=== PATIENT | female | born 1995 | race Two or more races ===

== ENCOUNTER 2025-02-22 22:47 | Emergency (ER) | payer OTHER ==
[~2025-02-22] VITALS: Ht 162.6 cm; Wt 77.9 kg
[2025-02-23] MEDS ORDERED: AMOX875T4 PO (01:11)
[2025-02-23] MEDS ORDERED: ACET500T58 PO (01:11)
--- NOTE | 2025-02-23 01:12 | ED.PDOC ---
Musculoskeletal HPI Comments 29-year-old female presents to ER with complaints of dog bite to right hand x1 hour. Patient states that her pitbull dog bit her on her right hand 1 hour prior to arrival to ER and sustained puncture wound to right hand at that time. She reports 9/10 pain to right hand without radiation. Denies use of medications for current symptoms. States she is unsure if her dog is up-to-date on vaccines and states she is unsure when her last tetanus shot was. Denies numbness/tingling, right wrist pain or any further symptoms/complaints Chief Complaint: Animal Bite Time Seen by MD: 22:56 Primary Care Provider: UNKNOWN Reviewed Notes: Nurses Notes, Medications, Allergies Allergies: Coded Allergies: NO KNOWN ALLERGIES (Unverified , 02/22/25) Home Meds Active Scripts Amoxicillin & Pot Clavulanate (Amoxicillin/Potassium Cla) 875 Mg Tab, 1 TAB PO BID for 7 Days, #14 TAB 0 Refills Prov:NEVA MARIA 02/23/25 Acetaminophen (Acetaminophen) 500 Mg Tab, 500 MG PO Q4HPRN, #30 TAB 0 Refills Prov:NEVA MARIA 02/23/25 Information Source: Patient Mode of Arrival: Ambulatory Last Tetanus: Unknown Past Medical History PAST MEDICAL HISTORY: Denies Surgical History: Denies all surgeries Family History Family History: Unknown Social History Smoker: Non-Smoker Alcohol: Denies ETOH Use Drugs: Denies Drug Use Lives In: Home Constitutional: denies: chills, diaphoresis, fatigue, fever, malaise, sweats, weakness, others EENTM: denies: blurred vision, double vision, ear bleeding, ear discharge, ear drainage, ear pain, ear ringing, eye pain, eye redness, hearing loss, mouth pain, mouth swelling, nasal discharge, nose bleeding, nose congestion, nose pain, photophobia, tearing, throat pain, throat swelling, voice changes, others Respiratory: denies: cough, hemoptysis, orthopnea, SOB at rest, shortness of breath, SOB with excertion, stridor, wheezing, others Cardiovascular: denies: chest pain, dizzy spells, diaphoresis, Dyspnea on exertion, edema, irregular heart beat, left arm pain, lightheadedness, palpitations, PND, syncope, others Gastrointestinal: denies: abdomen distended, abdominal pain, blood streaked bowels, constipated, diarrhea, dysphagia, difficulty swallowing, hematemesis, melena, nausea, poor appetite, poor fluid intake, rectal bleeding, rectal pain, vomiting, others Genitourinary: denies: abnormal vagina bleeding, burning, dyspareunia, dysuria, flank pain, frequency, hematuria, incontinence, pain, , vagina discharge, urgency, others Neurological: denies: dizziness, fainting, headache, left sided numbness, left sided weakness, numbness, paresthesia, pre-existing deficit, right sided numbness, right sided weakness, seizure, speech problems, tingling, tremors, weakness, others Musculoskeletal: denies: back pain, gout, joint pain, joint swelling, muscle pain, muscle stiffness, neck pain, others Integumetry: reports: others (As stated in HPI) Allergic/Immunocompromised: denies: Difficulty Healing, Frequent Infections, Hives, Itching, others Hematologic/Lymphatic: denies: anemia, blood clots, easy bleeding, easy bruising, swollen glands, others Endocrine: denies: excessive hunger, excessive sweating, excessive thirst, excessive urination, flushing, intolerance to cold, intolerance to heat, unexplained weight gain, unexplained weight loss, others Psychiatric: denies: anxiety, bipolar disorder, depression, hopeless, panic disorder, schizophrenia, sleepless, suicidal, others Physical Exam General Appearance: No Apparent Distress HEENT: PERRL/EOMI Neck: Full Range of Motion, Non-Tender, Normal, Normal Inspection Respiratory: Chest Non-Tender, Lungs Clear, No Accessory Muscle Use, No Respiratory Distress, Normal Breath Sounds Cardiovascular: No Murmur, No Gallop, Regular Rate/Rhythm Breast Exam: Deferred Gastrointestinal: NOT DONE Genitalia: Deferred Pelvic: Deferred Rectal: Deferred Extremities: Normal capillary refill, Normal range of motion Neurologic: Alert, No Motor Deficits, Normal Affect, Normal Mood, No Sensory Deficits Cerebellar Function: Normal Reflexes: Normal Skin: Dry, Warm Peripheral Pulses: 2+ Radial (R), 2+ Radial (L), 2+ Brachial (R), 2+ Brachial (L) Lymphatic: No Adenopathy Was a procedure done? Was a procedure done?: No Sedation Sedation?: No Images 1 - 1 cm puncture wound noted. Slight TTP/swelling/erythema localized to wound edges. No foreign body/further skin changes noted. Patient able to fully move all fingers right hand. Pulses intact Differential Diagnosis EXT Differential Diagnosis: Fracture, Dislocation, Laceration, Neurovascular injury X-Ray, Labs, Meds, VS Vital Signs Date Time Temp Pulse Resp B/P (MAP) Pulse Ox O2 Delivery O2 Flow Rate FiO2 02/23/25 01:21 98.5 84 16 99/53 (68) 98 98.5 02/23/25 01:20 Room Air* 0 21 02/22/25 23:00 98.6 84 16 99/53 (68) 98 98.6 Current Medications Medications (Trade) Dose Ordered Sig/Dashawn Route Start Time Stop Time Status Last Admin Diphtheria/ Tetanus/Acell Pertussis (Boostrix T-Dap) 0.5 ml ONCE ONCE IM 02/23/25 01:15 02/23/25 01:16 DC 02/23/25 01:19 Ceftriaxone Sodium (Rocephin) 1,000 mg ONCE ONCE IM 02/23/25 01:15 02/23/25 01:16 DC 02/23/25 01:18 PATIENT: GILLES ISSA ACCT: [id number] UNIT: [id number] : 1995 LOC: ER ROOM / BED: / AGE / SEX: 29 / F ADM STATUS: REG ER SERVICE ORDERING PHYSICIAN: NEVA MARIA PROCEDURE(s): RHAN - R HAND 3 VIEW XRAY REASON: right hand pain/dog bite ORDER NUMBER(s): [id number], ACCESSION NUMBER(s): [id number] CLINICAL INDICATION: right hand pain/dog bite TECHNIQUE: radiographic views of the were obtained. Comparison: None FINDINGS: No osseous or joint abnormality identified with no fracture or dislocation. Joint spaces are normal. No radiopaque foreign body noted. IMPRESSION: No abnormality demonstrated. ATED BY: CRISPIN DAS MD DICTATED DATE/TIME: 02/23/25145 SIGNED BY: CRISPIN DAS MD SIGNED DATE/TIME: 02/23/25145 CC: T-dap .5 mL IM ordered Rocephin 1 g IM ordered Wound cleaning performed at bedside Right hand x-ray reviewed Wound care/cleaning discussed and advised Advised to follow up in two days for wound check Advised to follow up with PCP in 1-2 days Patient verbalized understanding and agreeable with current plan of care Advised to return to ER immediately if symptoms worsen Images Reviewed?: Images reviewed and evaluated by me Time of 1ST Reevaluation: 01:10 Reevaluation 1ST: N/A Patient Education/Counseling: Diagnosis, Treatment, Prognosis, Need For Follow Up Family Education/Counseling: No Family Present Departure 1 Departure Time of Disposition: 01:50 Impression: Primary Impression: Dog bite of right hand Qualified Codes: S61.451A - Open bite of right hand, initial encounter; W54.0XXA - Bitten by dog, initial encounter Disposition: 01 HOME / SELF CARE / HOMELESS Condition: Stable e-Prescriptions Amoxicillin & Pot Clavulanate (Amoxicillin/Potassium Cla) 875 Mg Tab 1 TAB PO BID for 7 Days, #14 TAB 0 Refills Prov: NEVA MARIA 02/23/25 Acetaminophen (Acetaminophen) 500 Mg Tab 500 MG PO Q4HPRN, #30 TAB 0 Refills Prov: NEVA MARIA 02/23/25 Discharged With: Self Critical Care Note Critical Care Time?: No Stability Stability form required: No Heart Score Heart Score: Heart Score Response (Comments) Value History N/A 0 EKG N/A 0 Age N/A 0 Risk Factors N/A 0 Troponin N/A 0 Total 0 NEVA MARIA Feb 23, 2025 01:12
[2025-02-23] MEDS: cefTRIAXone SOD 1,000 MG VL IM ONE (01:18)
[2025-02-23] MEDS: TETANUS-DIPTH-ACEL PERTUSSIS 0.5ML SYR Tdap IM ONE (01:19)
[2025-02-23 01:21] VITALS: BP 99/53; PULSE 84; RESP 16; TEMP 98.5; O2SAT 98
--- NOTE | 2025-02-23 01:48 | DVH ---
CLINICAL INDICATION: right hand pain/dog bite TECHNIQUE: radiographic views of the were obtained. Comparison: None FINDINGS: No osseous or joint abnormality identified with no fracture or dislocation. Joint spaces are normal. No radiopaque foreign body noted. IMPRESSION: No abnormality demonstrated.
== END 2025-02-23 01:54 | disposition home or self-care (01) ==
LOC: ER 22:47
DX: S61.451A Open bite of right hand, initial encounter (principal); W54.0XXA Bitten by dog, initial encounter; Y93.89 Activity, other specified; Y92.89 Other specified places as the place of occurrence of the external cause; Y99.8 Other external cause status
CPT/HCPCS: 73130; 90471; 90715; 96372; 99284; J0696